=== PATIENT | female | born 1950 | race American Indian/Alaskan Native ===

== ENCOUNTER 2017-12-29 06:45 | Observation (INO) | payer MEDICARE ==
[2017-12-29] MEDS ORDERED: NACL 0.9% 500 ML 500 ML IV SCH (08:00)
[2017-12-29] MEDS ORDERED: VERSED ONE (08:13)
[2017-12-29] MEDS ORDERED: HEPARIN/NS 5000 UNIT/500ML(CATH LAB) 1,000 ML IR ONE (08:13)
[2017-12-29] MEDS ORDERED: SUBLIMAZE ONE (08:14)
[2017-12-29] MEDS ORDERED: CALAN ONE (08:14)
[2017-12-29] MEDS ORDERED: XYLOCAINE 2% INFILTRATI ONE (08:14)
[2017-12-29] MEDS ORDERED: NITROGLYCERIN SYRINGE 3 ML ONE (08:14)
[2017-12-29] MEDS ORDERED: ECOTRIN PO ONE (08:30)
[2017-12-29] MEDS ORDERED: NACL 0.9% 0 ML ONE (08:34)
[2017-12-29 08:35] LABS: Basophils % (Auto) 1.1 % (0.0-1.8); Eosinophils # (Auto) 0.1 K/mm3 (0.0-0.4); Eosinophils % (Auto) 3.4 % (0.0-4.3); Hemoglobin 12.9 gm/dl (10.1-14.3); Lymphocytes # (Auto) 1.5 K/mm3 (1.2-5.4); Lymphocytes % (Auto) 35.5 % (13.4-35.0); Mean Corpuscular HGB Conc 34 % (30-34); Mean Corpuscular Hemoglobin 29 pg (28-32); Mean Corpuscular Volume 85 fl (79-97); Monocytes # (Auto) 0.4 K/mm3 (0.0-0.8); Monocytes % (Auto) 9.3 % (0.0-7.3); Platelet Count 191 K/mm3 (140-440); Red Blood Count 4.46 M/mm3 (3.65-5.03); Red Cell Distribution Width 14.4 % (13.2-15.2)
[2017-12-29 08:48] LABS: BUN/Creatinine Ratio 35; Blood Urea Nitrogen 21 mg/dL (7-17); Hemolysis Index 5
[2017-12-29 08:50] LABS: INR 0.86 (0.87-1.13)
[2017-12-29] MEDS: HEPARIN 10,000 UNITS/10 ML ONE ×2 (10:30→10:36)
[2017-12-29] MEDS ORDERED: EFFIENT PO ONE (11:22)
[2017-12-29] MEDS: NORVASC PO SCH (12:59)
--- NOTE | 2017-12-29 13:46 | Cardiac Catherization Report ---
REFERRING PHYSICIAN: Presley Kerr M.D. INDICATION FOR PROCEDURE: The patient is a very pleasant 67-year-old -[place] female with multiple medical problems including hypertension, hyperlipidemia, having recurrent chest pain and a nuclear stress test with moderate anteroapical ischemia on multiple antianginals including calcium channel selma. She is referred for left heart catheterization. Risks, benefits, and alternatives were discussed at length prior to obtaining informed consent. PROCEDURE IN DETAIL: The patient was brought to the catheterization lab in a postabsorptive state, was prepped and draped in sterile fashion. Qasim's test in right hand was normal. A 2 mL of 2% lidocaine used to anesthetize the right wrist. A standard 6-Irish hydrophilic sheath was used to cannulate the right radial artery via modified Seldinger technique. All exchanges performed to exchange a J-tip guidewire. JL3.5 catheter was used to engage the left main. No dampening or ventricularization. Cineangiography performed in multiple projections. JR4 catheter was used to cross the aortic valve under fluoroscopic guidance. Left ventriculography performed in 30 LADD and 30 [place]I projections via hand injections, catheter flushed. Manual pullback was performed with continuous pressure monitoring. Catheter was used to engage the right coronary. No dampening or ventricularization. Cineangiography was performed in multiple projections. DATA: Aortic pressure is 140/70, LV pressure is 140. LVEDP of 11 mmHg. Left ventriculography reveals normal systolic performance with estimated ejection fraction of 55-60%. No evidence of aortic stenosis. Normal sinus rhythm throughout the procedure. CORONARY ANATOMY: This is a left dominant system. Right coronary is small, nondominant. No significant disease. Left main without significant disease bifurcates left anterior descending and left circumflex. Left circumflex is a moderate sized vessel, courses AV groove. No significant disease in left circumflex and high OM trunk. LAD is a moderate sized vessel, courses anterior intergroove, wraps around the apex. There is a 95-99% ulcerated stenosis in the high mid LAD, JAKE 2 flow identified. This is certainly culprit vessel, correlates with stress test, symptoms already on antianginal. At this point, we turned attention to PCI, further heparin given. Abnormal ACT confirmed. The patient reloaded with aspirin and Effient. At this point, EBU 3.5 guide was used to engage the left main without difficulty. I used a Entiat wire to cross the lesion without difficulty; predilated with a 2.5 x 12 balloon, improved angiographic characteristics. Then, I used a 2.75 x 18 Resolute Integrity stent, deployed at 10 JUAN CARLOS for 30 seconds. Intravascular ultrasound was thus then performed, which revealed mild under expansion, but good apposition. Next, I used a 3.0 x 12 noncompliant balloon. Multiple balloon inflations were done throughout the stent. Repeat IVUS reveals a well expanded and well apposed stent. Excellent final angiographic and ultrasonographic results. Ultrasound also reveals no evidence of dissection proximally on the left main. Final angiogram is excellent. No complications, dissection or distal cut off. I directly supervised the administration of moderate sedation from 10:26 to 11:04 a.m. with fentanyl and Versed. At the end of the case, the patient is clinically stable, chest pain free, hemodynamically and electrically stable as well. CONCLUSIONS: 1. Severe single vessel coronary artery disease with a 95% culprit high mid LAD stenosis with JAKE 2 flow. This lesion correlates with abnormal stress test symptoms, already on antianginal. 2. Successful IVUS guided PCI placement of a drug-eluting stent (Resolute 2.75 x 18) with excellent final angiographic and ultrasonographic results. No complications. 3. No other significant coronary disease noted in the coronary tree in this left dominant system. 4. Normal LV function, estimated ejection fraction of 55-60%. 5. No evidence of aortic stenosis. At this point, the patient is clinically stable, chest pain free. Aspirin, Effient, continue statin therapy, aggressive primary and secondary risk factor modification. Results of procedure explained to the patient and family. All questions and concerns were addressed. The patient will be watched overnight. JOB# [id number] SBM/NTS
[2017-12-30 05:59] LABS: Basophils % (Auto) 0.9 % (0.0-1.8); Eosinophils # (Auto) 0.1 K/mm3 (0.0-0.4); Eosinophils % (Auto) 3.3 % (0.0-4.3); Hematocrit 38.7 % (30.3-42.9); Hemoglobin 12.9 gm/dl (10.1-14.3); Lymphocytes # (Auto) 1.5 K/mm3 (1.2-5.4); Mean Corpuscular HGB Conc 34 % (30-34); Mean Corpuscular Hemoglobin 28 pg (28-32); Mean Corpuscular Volume 85 fl (79-97); Monocytes # (Auto) 0.4 K/mm3 (0.0-0.8); Platelet Count 179 K/mm3 (140-440); Red Blood Count 4.56 M/mm3 (3.65-5.03); Red Cell Distribution Width 14.2 % (13.2-15.2)
[2017-12-30 06:20] LABS: Creatine Kinase MB 1.7 ng/mL (0.0-4.0)
[2017-12-30 06:22] LABS: BUN/Creatinine Ratio 25; Blood Urea Nitrogen 10 mg/dL (7-17); Calcium 9.5 mg/dL (8.4-10.2); Hemolysis Index 9
--- NOTE | 2017-12-30 08:19 | XRay Report ---
AP CHEST: HISTORY: Post PCI AP view of the chest demonstrates a normal mediastinal and cardiac contour with clear lungs and normal bony and soft tissue structures. IMPRESSION: No acute cardiopulmonary process.
[2017-12-30] MEDS ORDERED: EFFIENT PO SCH (10:00)
[2017-12-30] MEDS ORDERED: BABY ASPIRIN PO SCH (10:00)
[2017-12-30] MEDS ORDERED: VITAMIN D3 PO SCH (10:00)
[2017-12-30] MEDS: NORVASC PO SCH (10:30)
[2017-12-30 10:31] VITALS: BP 129/78
--- NOTE | 2017-12-30 10:33 | Short Stay Summary ---
Short Stay Documentation Date of service: 12/30/17 - History H&P: obtained from office - Allergies and Medications Current Medications: Allergies No Known Allergies Allergy (Unverified 12/29/17 06:46) Home Medications Medication Instructions Recorded Confirmed Last Taken Type Amlodipine Besylate/Benazepril 5 - 40 mg PO DAILY 12/29/17 12/29/17 12/28/17 History [Amlodipine-Benazepril 5-20 mg] 5-40 mg Aspirin EC [Aspirin Enteric Coated 81 mg PO DAILY 12/29/17 12/29/17 12/28/17 History TAB] 81mg Cholecalciferol Vit D3 [Vitamin D3] 1 tab PO DAILY 12/29/17 12/29/17 12/28/17 History tab Ranitidine HCl [Heartburn Relief] 150 mg PO HS 12/29/17 12/29/17 12/28/17 History 150mg Rosuvastatin Calcium 40 mg PO DAILY 12/29/17 12/29/17 12/28/17 History 40mg Active Medications Amlodipine Besylate (Norvasc) 5 mg PO QDAY [facility] Last Admin: 12/30/17 10:30 Dose: 5 mg Aspirin (Baby Aspirin) 81 mg PO QDAY [facility] Last Admin: 12/30/17 10:30 Dose: 81 mg Atorvastatin Calcium (Lipitor) 80 mg PO QHS [facility] Last Admin: 12/29/17 22:02 Dose: 80 mg Cholecalciferol (Vitamin D3) 1,000 unit PO DAILY [facility] Last Admin: 12/30/17 10:30 Dose: 1,000 unit Prasugrel (Effient) 10 mg PO QDAY [facility] Last Admin: 12/30/17 10:31 Dose: 10 mg - Physical exam General appearance: no acute distress Lungs: Clear to auscultation Heart: Regular rate, Normal S1, Normal S2 Extremities: no ischemia, pulses intact, pulses symmetrical Neurological: Normal gait, Normal speech, Strength at 5/5 X4 ext - Brief post op/procedure progress note Date of procedure: 12/29/17 Pre-op diagnosis: abnormal stress test Post-op diagnosis: other (CAD) Procedure: LHC with PCI - see dictated cath report Anesthesia: local Estimated blood loss: none Condition: stable - Hospital course Hospital course: Pt presented for scheduled elective LHC and subsequently underwent LHC with PCI of LAD. She was noted to have sinus bradycardia during procedure which was stable and currently resolved. She was admitted for observation overnight. She remained clinically and hemodynamically stable throughout procedure and recovery and is medically stable for discharge home today. Can consider introduction of BB as OP. - Disposition Condition at discharge: Good - Discharge Diagnoses (1) CAD (coronary artery disease) Status: Chronic (2) Stented coronary artery Status: Chronic (3) HTN (hypertension) Status: Chronic (4) Hyperlipidemia Status: Chronic Short Stay Discharge Plan Activity: advance as tolerated Diet: low fat, low cholesterol, low salt Wound: open to air, keep clean and dry, per your surgeon's advice Follow up with: JUDY OAKLEY MD [Primary Care Provider] - 7 Days TAMMY CASAS MD [Staff Physician] - 7 Days ([place] office on 2017 @ 1:15PM) Forms: Work/School Release Form(ED), Work/School Release Form Prescriptions: Prasugrel [Effient] 10 mg PO QDAY #30 tablet
== END 2017-12-30 14:09 | disposition home or self-care (01) ==
LOC: CATHLABREC 06:45 → 4A 11:24
PROVIDERS: ADMIT Internal Medicine; ATTEND Internal Medicine
DX: I25.10 Atherosclerotic heart disease of native coronary artery without angina pectoris (principal); I10 Essential (primary) hypertension; E78.5 Hyperlipidemia, unspecified
CPT/HCPCS: 36415; 71045; 80048; 82550; 82553; 84484; 85025; 85347; 85610; 85730; 92978; 93005; 93010; 93458; A9270; C1725; C1753; C1769; C1874; C1887; C1894; C9600; G0378; J1644; J2250; J3010; J7040; 92928; J0153; Q9967